=== PATIENT | male | born 1995 ===

== ENCOUNTER → 2023-12-16 | Outpatient (CLI) | payer BC ==
[2023-12-16 08:13] LABS: Urine Bacteria None Seen /hpf (None Seen)
[2023-12-16 08:19] LABS: Basophils # (auto) 0.1 10 ^3/uL (0-0.2); Basophils % (auto) 0.7 % (0.0-2.0); Eosinophils # (auto) 0.3 10 ^3/uL (0-0.8); Hematocrit 45.1 % (41.0-53.0); Hemoglobin 15.7 g/dL (13.5-17.5); Lymphocytes # (auto) 3.1 10 ^3/uL (0.4-5.4); Lymphocytes % (auto) 39.2 % (10.0-50.0); Mean Corpuscular Hemoglobin 30.1 pg (28.0-32.0); Mean Corpuscular Hgb Conc. 34.8 g/dL (32.0-36.0); Mean Corpuscular Volume 86.4 fL (80.0-100.0); Monocytes # (auto) 0.4 10 ^3/uL (0-1.3); Monocytes % (auto) 5.7 % (0.0-12.0); Neutrophils # (auto) 3.9 10 ^3/uL (1.6-8.6); Neutrophils % (auto) 50.4 % (37.0-80.0); Red Blood Cells 5.22 10^6/uL (4.5-5.90); Red Cell Distribution Width 13.5 % (11.8-14.3); White Blood Cell 7.8 10^3/uL (4.4-10.8)
[2023-12-16 08:31] LABS: Urine Blood Negative /uL (Negative); Urine Clarity Clear (Clear); Urine Color Light-Yellow (Yellow); Urine Protein, UAD Negative (Negative); Urine Specific Gravity 1.016 (1.001-1.035); Urine Urobilinogen Normal (Negative); Urine WBC <1 /hpf (0 - 3)
[2023-12-16 08:52] LABS: Erythrocyte Sedimentation Rate 2 mm/hr (0-20)
[2023-12-16 09:18] LABS: Alanine Aminotransferase 48 U/L (7-40); Alkaline Phosphatase 84 U/L (46-116); Anion Gap 6 (5-15); Aspartate Aminotransferase 17 U/L (13-40); BUN/Creatinine Ratio 9.6 (10.0-20.0); Blood Urea Nitrogen 8 mg/dL (9-23); Carbon Dioxide 29 mmol/L (20-30); Chloride 105 mmol/L (98-107); Glucose 94 mg/dL (74-106); LDL Cholesterol 108 mg/dL (< 100); Sodium 140 mmol/L (136-145); Triglycerides 75 mg/dL (< 150)
[2023-12-16 09:19] LABS: Bilirubin, Total 0.8 mg/dL (0.2-1.0); Cholesterol 170 mg/dL (< 200); HDL Cholesterol 52 mg/dL (40-59); Total Protein 7.3 g/dL (5.7-8.2)
[2023-12-16 09:21] LABS: Albumin 4.6 g/dL (3.2-4.8)
[2023-12-16 09:32] LABS: Hepatitis B Surface Antigen Negative (Negative)
[2023-12-16 09:53] LABS: Hepatitis B Core IgM Negative
== END | disposition home or self-care (01) ==
LOC: LAB 07:51
PROVIDERS: ATTEND Internal Medicine
DX: K21.9 Gastro-esophageal reflux disease without esophagitis (principal); R79.89 Other specified abnormal findings of blood chemistry; G45.3 Amaurosis fugax
CPT/HCPCS: 36415; 80053; 80061; 81001; 83540; 84439; 84443; 85025; 85652; 86160; 86225; 86235; 86376; 86431; 86705; 87340